=== PATIENT | female | born 2005 | race Caucasian/White ===

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

== ENCOUNTER 2025-01-12 09:08 | Emergency (ER) | payer BC ==
[2025-01-12 09:34] VITALS: BP 116/79; PULSE 74
[2025-01-12] MEDS: Bacitracin/Neomycin/Polymyxin B Oint 0.9 GM U/D Packet TOP ONE (09:57)
== END 2025-01-12 10:30 | disposition home or self-care (01) ==
LOC: LL.ED 09:08 → MERGE 09:08 → LL.ED 10:30
DX: S92.314A Nondisplaced fracture of first metatarsal bone, right foot, initial encounter for closed fracture (principal); S91.311A Laceration without foreign body, right foot, initial encounter; Z79.899 Other long term (current) drug therapy; W20.8XXA Other cause of strike by thrown, projected or falling object, initial encounter; Y93.89 Activity, other specified
CPT/HCPCS: 73630-RT; 99283; A9270-GY